=== PATIENT | male | born 1980 | race Caucasian/White ===

== ENCOUNTER → 2017-01-13 17:31 | Emergency (ER) | payer BC ==
[~2017-01-13 17:31] MED LIST: D5W IVPB ONE; SULFAMETHOXAZOLE IVPB ONE; TRIMETH IVPB ONE
[2017-01-13 22:14] VITALS: BP 126/80
--- NOTE | 2017-01-19 03:41 | ED ---
Throat Pain/Nasal Congestion - HPI Summary HPI Summary: Pt here w/ prolonged periorbital cellulitis. Started last week. As flaking over B/L eyelids - pt thought this was allergies/eczema and so took antihistamine. Following couple of days he developed swelling of his Rt eye lids (upper and lower) which worsened. Saw PCP who rx'd clindamycin which he's taken for 4 days now. He later developed a crusted wound at the corner of his Rt eye - returned to PCP as no relief w/ anbx. PCP cx'd wound and started pt on bactrim - he's taken 2 doses of this and no change. Swelling is worse in the morning, slightly better as day goes on/he's upright. Denies laura fever, chills, ocular pain in general or w/ movement and no laura sensation of FB although reports when this first started, had some itching/irritation in Rt eye - this has since dissipated. No other pain/lesions along side of head/face. Denies d/c from eye. Does not wear contact lenses and no known trauma to the area. Eczema is usually worse in winter but allergies can trigger this. Pt is here tonight as he reports his PCP sent him over for IV anbx. - History of Current Complaint Chief Complaint: EDEyeProblem Time Seen by Provider: 01/13/17 18:43 Hx Obtained From: Patient - Allergies/Home Medications Allergies/Adverse Reactions: Allergies Allergy/AdvReac Type Severity Reaction Status Date / Time Amoxicillin Allergy Rash Verified 02/21/16 10:47 peanuts Allergy Anaphylatic Uncoded 01/13/17 17:42 Shock PMH/Surg Hx/FS Hx/Imm Hx Previously Healthy: Yes Endocrine/Hematology History: Reports: Other Endocrine/Hematological Disorders - eczema Denies: Hx Diabetes Cardiovascular History: Denies: Hx Hypertension, Hx Pacemaker/ICD Respiratory History: Reports: Hx Seasonal Allergies Denies: Hx Asthma History: Denies: Hx Renal Disease Sensory History: Denies: Hx Hearing Aid Psychiatric History: Denies: Hx Panic Disorder - Surgical History Surgery Procedure, Year, and Place: RIGHT RING FINGER REATTACH TENDON/ARTERY/ NERVES 2003 Infectious Disease History: No Infectious Disease History: Denies: Traveled Outside the [place] in Last 30 Days - Family History Known Family History: Positive: None - Social History Occupation: Employed Full-time Lives: With Family Alcohol Use: Occasionally Hx Substance Use: No Substance Use Type: Reports: None Hx Tobacco Use: Yes Smoking Status (MU): Current Every Day Smoker Review of Systems Constitutional: Negative Negative: Fever, Chills, Fatigue Eyes: Other - see HPI Negative: Photophobia, Blurred Vision, Diplopia ENT: Negative Negative: Sore Throat, Ear Ache, Nasal Discharge Cardiovascular: Negative Negative: Chest Pain Respiratory: Negative Negative: Shortness Of Breath, Cough Gastrointestinal: Negative Negative: Abdominal Pain, Vomiting, Diarrhea, Nausea Positive: no symptoms reported Musculoskeletal: Negative Negative: Arthralgia, Myalgia Skin: Other - see HPI Neurological: Negative Negative: Headache, Weakness, Paresthesia, Numbness, Syncope, Slurred Speech Psychological: Normal All Other Systems Reviewed And Are Negative: Yes Physical Exam Triage Information Reviewed: Yes Vital Signs On Initial Exam: Initial Vitals Temp Pulse Resp BP Pulse Ox 98.6 F 112 17 145/84 97 01/13/17 17:36 01/13/17 17:36 01/13/17 17:36 01/13/17 17:36 01/13/17 17:36 Vital Signs Reviewed: Yes Appearance: Positive: Well-Appearing - aside from gross edema of tissue surrounding Rt eye - upper and lower lids - scabbing in corner of Rt eye over skin - no d/c, sclera clear and conjunctiva pink w/o edema; B/L upper lids w/ mild skin flaking, No Pain Distress, Well-Nourished Skin: Positive: Warm, Dry Head/Face: Positive: Normal Head/Face Inspection - NTTP Eyes: Positive: EOMI, MIGUELITO, Conjunctiva Clear, Other: - see above for periorbital exam findings. Negative: Conjunctiva Inflammed, Discharge ENT: Positive: Normal ENT inspection, Hearing grossly normal, Pharynx normal, TMs normal. Negative: Nasal congestion, Nasal drainage, Tonsillar swelling, Tonsillar exudate Neck: Positive: Supple, Nontender, No Lymphadenopathy Respiratory/Lung Sounds: Positive: Clear to Auscultation, Breath Sounds Present. Negative: Stridor, Wheezes Cardiovascular: Positive: Normal, RRR Musculoskeletal: Positive: Normal, Strength/ROM Intact Neurological: Positive: Normal, Sensory/Motor Intact, Alert, Oriented to Person Place, Time, CN Intact II-III Psychiatric: Positive: Normal Procedures - Eye Procedure Alcaine Drops Administered: No - tetracaine w/ fluouresceine dye - no abnormal findings (ie.ulcerations, abr Eye Irrigated w/ Saline (ccs): 3 Diagnostics - Vital Signs Vital Signs Temp Pulse Resp BP Pulse Ox 01/13/17 22:09 71 16 126/80 01/13/17 17:41 98.6 F 113 17 145/84 98 01/13/17 17:36 98.6 F 112 17 145/84 97 - Laboratory Lab Statement: Any lab studies that have been ordered have been reviewed, and results considered in the medical decision making process. EENT Course/Dx - Course Course Of Treatment: Pt here w/ prolonged periorbital cellulitis of unkown origin. It is suspected this could have started from allergy/eczema sx. He has not had any improvement after 4 days of clindamycin PO and 1 day of bactrim. Switched pt to cephalosporin and provided first dose via IV. Ordered bactrim IV as well however this took an exceptionally long time to come from pharmacy and pt did not care to wait. Discussed he could complete bactrim PO at home and continue cephalosporin PO as well. Advised close f/u w/ PCP about sx, test results in 24 hours - if same or worse, return to ED. Also encouraged trying ice , ibuprofen and an anti-histamine to assist in control of tissue swelling. Pt and agree w/ plan and will return to ED if danger s/sx present (ie change in vision, fever, HOLLAND, proptosis, pain w/ ocular movement, neck pain, etc). No s/ sx of ocular HZV infection tonight and does not appear to be classic HZV rash so anti-virals withheld. - Diagnoses Provider Diagnoses: Periorbital cellulitis of right eye Discharge - Discharge Plan Condition: Stable Disposition: HOME Prescriptions: Cefdinir [Cefdinir 300 MG CAP] 300 mg PO BID #20 cap Patient Education Materials: Periorbital Cellulitis in Adults (ED) Referrals: Nataliya Foy MD [Primary Care Provider] - Additional Instructions: You appear to have periorbital cellulitis. This is an infection of the tissue around the eye. Tonight, you received a 2 gram dose of rocephin IV and will be switched from clindamycin to cefdinir. Rocephin and cefdinir are in the same class of antibiotics and will cover staph organisms. 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 Stop taking the clindamycin. Continue and complete the Bactrim (aka Trimethoprim and Sulfamethoxalone). You may also try benadryl 50mg before bed tonight to reduce swelling around eye. You may continue a daily anti-histamine (ie. claritin, zyrtec, etc) and take benadryl before bed to reduce swelling from possible allergic swelling. These medications should show improvement of symptoms in 24 hours (by 9:00p tomorrow). If worse - eye redness, eye pain with movements, light sensitivity, eye bulging forward, headache, fever, jaw/neck pain, return to ED. Otherwise, follow-up with PCP for results of test taken earlier this week.
== END | disposition home or self-care (01) ==
LOC: ED 17:31
DX: L03.213 Periorbital cellulitis (principal)
CPT/HCPCS: 96365; 99283; J0696

== ENCOUNTER 2017-10-18 20:21 | Emergency (ER) | payer BC ==
[2017-10-18 20:42] VITALS: BP 120/74
[2017-10-18] MEDS ORDERED: Tetan/Diph/Pertus SYR(Tdap)* 0.5 ML SYR(BOOSTRIX) use SYR IM ONE (21:18)
--- NOTE | 2017-10-18 21:27 | UC ---
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 Wound is close w/o swelling. Pain is 4/10 intermittent and radiating to the forearm. Pt thinks he irritated a nerve. Pt denies numbness or tingling sensation, fever, SON, chest pain, abdominal pain,N/ V/D. - History of Current Complaint Chief Complaint: UCUpperExtremity Stated Complaint: NAIL PUNCTURE HAND Time Seen by Provider: 10/18/17 21:16 Hx Obtained From: Patient Onset/Duration: Sudden Onset, Lasting Hours - 2 hrs ago, Still Present Severity Initially: Mild Severity Currently: Mild Pain Intensity: 4 Pain Scale Used: 0-10 Numeric Location Of Pain: Is Discrete @ - dorsal side of left hand, Radiates To - left forearm Character: Unable to Describe - shooting pain Aggravating Factor(s): Movement Alleviating Factor(s): OTC Meds, Rest Associated Signs And Symptoms: Positive: Redness - point. Negative: Swelling, Bruising, Fever, Numbness/Tingling Related History: Dominant Hand Right - Risk Factors Non-Orthopedic Risk Factor: Negative DVT Risk Factors: Negative - Allergies/Home Medications Allergies/Adverse Reactions: Allergies Allergy/AdvReac Type Severity Reaction Status Date / Time amoxicillin Allergy Rash Verified 10/18/17 20:36 peanuts Allergy Anaphylatic Uncoded 10/18/17 20:36 Shock Home Medications: Home Medications Albuterol HFA INHALER* [Ventolin HFA Inhaler*] 1 puff INH Q4H PRN 10/18/17 [ History Confirmed 10/18/17] PMH/Surg Hx/FS Hx/Imm Hx Previously Healthy: Yes Endocrine History: Dyslipidemia - diet control - Surgical History Surgical History: Yes Surgery Procedure, Year, and Place: RIGHT RING FINGER REATTACH TENDON/ARTERY/ NERVES 2003 - Family History Known Family History: Positive: Cardiac Disease, Hypertension - Social History Occupation: Employed Full-time Lives: With Family Alcohol Use: Occasionally Substance Use Type: None Smoking Status (MU): Current Every Day Smoker Amount Used/How Often: 3-4 cig/ day Review of Systems Constitutional: Negative Skin: Other - dorsal side of left hand w/ a discrete puncture wound w/ nail Eyes: Negative ENT: Negative Respiratory: Negative Cardiovascular: Negative Gastrointestinal: Negative Genitourinary: Negative Motor: Negative Neurovascular: Negative Musculoskeletal: Other: - left hand pain s/p puncture wound Neurological: Negative Psychological: Negative Is Patient Immunocompromised?: No All Other Systems Reviewed And Are Negative: Yes Physical Exam - Summary Physical Exam Summary: Vital Signs Reviewed: Yes General: Well-Appearing, No Pain Distress, Well-Nourished male w/o any apparent pain distress Eyes: Positive: Conjunctiva Clear - PERRLA, EOMI ENT: Positive: Normal ENT inspection, Hearing grossly normal, Pharynx normal, TMs normal, Uvula midline Neck: Positive: Supple, Nontender, No Lymphadenopathy Respiratory: Positive: Chest non-tender, Lungs clear, Normal breath sounds, No respiratory distress Cardiovascular: Positive: RRR, No Murmur, Pulses Normal, Brisk Capillary Refill Abdomen Description: Positive: Nontender, No Organomegaly, Soft. Negative: CVA Tenderness (R), CVA Tenderness (L) Bowel Sounds: Positive: Present Neurological Exam: Normal Musculoskeletal: Positive: Rt hand is without obvious asymmetry or deformity when compared to the L hand. Mid dorsal side of left hand w/ a discrete puncture wound w/ point erythema, no swelling observed, point tenderness on palpation. No bony crepitus. FROM of left hand and all phalanx. Motor/sensory function of ulnar, radial, median nerves intact. Ulnar and radial pulses intact. Capillary refill intact. 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 Wound is close w/o swelling. Pain is 4/10 intermittent and radiating to the forearm. Pt thinks he irritated a nerve. Pt denies numbness or tingling sensation, fever, SON, chest pain, abdominal pain,N/V/D.Hx obtained. Pt w/ discrete puncture wound on the mid dorsal side of left hand, FROM of hand, mild tenderness on examination. Pt given Tetanus IM inj by the Nurse. Pt tolerated well IM inj. wound clened w/ Iodine swabs and applied Bacitracin topical and sterile dressing applied. Pt Rx Keflex PO and Naproxen PO. Pt advised if he develops signs of infection despite ABX to return to the urgetn care or f/u w/ PCP for further Treatment. Pt undestood and agreed w/ plan of care. - Differential Dx/Diagnosis Differential Diagnosis/HQI/PQRI: Contusion, Laceration, Other - puncture wound Provider Diagnoses: 1- left hand puncture wound s/p nail injury Discharge - Discharge Plan Condition: Stable Disposition: HOME Prescriptions: Cephalexin CAP* [Keflex CAP*] 500 mg PO QID #27 cap Naproxen Sodium [Naproxen Sodium 500 MG TAB] 500 mg PO Q8HR PRN #20 tab PRN Reason: Pain Patient Education Materials: Puncture Wound (ED) Referrals: Tc Hernandez MD [Primary Care Provider] - 3 Days Additional Instructions: 1-Please take full course of Antibiotic. 2- Take Naproxen PO as directed after mealas to alleviate pain. 3-Avoid flexion of your hand until symptoms resolved. keep wound clean and dry. 4-Please F/u with your PCP in 3 days for further evaluation and treatment.
[2017-10-18] MEDS ORDERED: Naproxen TAB* 250 MG PO ONE (21:33)
[2017-10-18] MEDS ORDERED: Cephalexin CAP* 500 MG PO ONE (21:33)
== END 2017-10-18 21:42 | disposition home or self-care (01) ==
LOC: UCEAST 20:21
DX: S61.432A Puncture wound without foreign body of left hand, initial encounter (principal); W45.0XXA Nail entering through skin, initial encounter; Y93.89 Activity, other specified; Y92.9 Unspecified place or not applicable; Z23 Encounter for immunization; E78.5 Hyperlipidemia, unspecified; Z88.1 Allergy status to other antibiotic agents; F17.210 Nicotine dependence, cigarettes, uncomplicated
CPT/HCPCS: 90471; 90715; 99212; A9270-GY; G0463

== ENCOUNTER 2018-06-22 14:54 | Emergency (ER) | payer BC ==
--- NOTE | 2018-06-22 18:06 | ED ---
Head Injury - HPI Summary HPI Summary: Pt. is a 38 y.o male who presents to the ER for evaluation after a head injury that occurred 06/11/18. Pt. states he was playing hockey wearing a helmet when he fell back and hit the back of his head in the ice. Pt. denies LOC. He states he had a h/a for a few days that then improved. He states over the weekend, a few days ago, he had a few hour episode where he did not recall walking to his car and sending text messages. He c/o mild headache. Pt. concerned today with memory loss. He has no past medical hx. He does note lack of sleep lately as he has a new baby at home. Sxs are moderate in severity. No current modifying factors. - History Of Current Complaint Chief Complaint: EDHeadInjury Stated Complaint: CONCUSSION Time Seen by Provider: 06/22/18 15:38 Hx Obtained From: Patient Pain Intensity: 2 - Allergies/Home Medications Allergies/Adverse Reactions: Allergies Allergy/AdvReac Type Severity Reaction Status Date / Time amoxicillin Allergy Rash Verified 06/22/18 15:27 peanuts Allergy Anaphylatic Uncoded 10/18/17 20:36 Shock PMH/Surg Hx/FS Hx/Imm Hx Previously Healthy: Yes Endocrine/Hematology History: Reports: Other Endocrine/Hematological Disorders - eczema Denies: Hx Diabetes Cardiovascular History: Denies: Hx Hypertension, Hx Pacemaker/ICD Respiratory History: Reports: Hx Asthma, Hx Seasonal Allergies History: Denies: Hx Renal Disease Sensory History: Denies: Hx Hearing Aid Psychiatric History: Denies: Hx Panic Disorder - Surgical History Surgery Procedure, Year, and Place: RIGHT RING FINGER REATTACH TENDON/ARTERY/ NERVES 2003 Infectious Disease History: No Infectious Disease History: Denies: Traveled Outside the [place] in Last 30 Days - Family History Known Family History: Positive: None, Cardiac Disease, Hypertension - Social History Occupation: Employed Full-time Lives: With Family Alcohol Use: Occasionally Hx Substance Use: No Substance Use Type: Reports: None Hx Tobacco Use: Yes Smoking Status (MU): Current Every Day Smoker Amount Used/How Often: 3-4 cig/ day Review of Systems Constitutional: Negative Eyes: Negative ENT: Negative Cardiovascular: Negative Respiratory: Negative Gastrointestinal: Negative Musculoskeletal: Negative Skin: Negative Neurological: Other - memory loss Positive: Headache All Other Systems Reviewed And Are Negative: Yes Physical Exam Triage Information Reviewed: Yes Vital Signs On Initial Exam: Initial Vitals Temp Pulse Resp BP Pulse Ox 98.2 F 79 16 143/80 98 06/22/18 15:20 06/22/18 15:20 06/22/18 15:20 06/22/18 15:20 06/22/18 15:20 Vital Signs Reviewed: Yes Appearance: Positive: Well-Appearing - Pt. sitting on bed in NAD. Skin: Positive: Warm, Dry Head/Face: Positive: Normal Head/Face Inspection Eyes: Positive: Normal, EOMI, MIGUELITO ENT: Positive: Normal ENT inspection Respiratory/Lung Sounds: Positive: Clear to Auscultation Cardiovascular: Positive: Normal, RRR Musculoskeletal: Positive: Normal, Strength/ROM Intact Neurological: Positive: Normal, Alert, Oriented to Person Place, Time, CN Intact II-III, Finger to Nose - normal, Facial Symmetry, Speech Normal Psychiatric: Positive: Affect/Mood Appropriate - Stella Coma Scale Best Eye Response: 4 - Spontaneous Best Motor Response: 6 - Obeys Commands Best Verbal Response: 5 - Oriented Coma Scale Total: 15 Diagnostics - Vital Signs Vital Signs Temp Pulse Resp BP Pulse Ox 06/22/18 15:20 98.2 F 79 16 143/80 98 - Laboratory Result Diagrams: 06/22/18 17:59 06/22/18 19:51 Lab Statement: Any lab studies that have been ordered have been reviewed, and results considered in the medical decision making process. Head Injury Course/Dx Course Of Treatment: Pt. presenting for memory loss and ongoing h/a after head injury two weeks ago. Pt. has no neuro deficits on exam. Given memory loss and pt.'s concerns will obtain head ct to r/o bleed, fx, mass. Reading per radiology: IMPRESSION: There is a nonspecific 5 mm hypoattenuating focus at the cazares-white matter. junction of the left frontal lobe. This is a nonspecific finding that can be further. characterized with MRI of the brain if clinically indicated. I spoke with oncall neurology, Dr. Bunn, who recommends MRI brain w /wo for further evaluation. Results and plan were discussed with pt. Pending MRI between 7-8pm. Pt. will be signed out to Britany Bush for MRI results and appropriate disposition. - Diagnoses Differential Diagnosis/HQI/PQRI: Cerebral Contusion, Concussion Without LOC, Contusion, Hematoma, Intracranial Bleed Provider Diagnoses: Head injury Discharge - Sign-Out/Discharge Documenting (check all that apply): Patient Departure Signing out patient TO: Ayleen Bush - Discharge Plan Condition: Good Disposition: HOME Patient Education Materials: Head Injury (ED) Referrals: Glenroy Bunn MD [Medical Doctor] - Tc Hernandez MD [Primary Care Provider] - Additional Instructions: follow up with neurology Modify activities as tolerated Follow up with primary within 5 days Return to ED if develop any new or worsening symptoms - Billing Disposition and Condition Condition: GOOD Disposition: Home
[2018-06-22 18:15] LABS: ABS Basophils 0.1 10^3/ul (0-0.2); ABS Eosinophils 0.4 10^3/ul (0-0.6); ABS Lymphocytes 1.9 10^3/ul (1.0-4.8); ABS Monocytes 0.5 10^3/ul (0-0.8); ABS Neutrophils 5.5 10^3/ul (1.5-7.7); ABS Nucleated RBC 0 10^3/ul; Hematocrit 47 % (42-52); Hemoglobin 15.8 g/dl (14.0-18.0); Lymphocyte % 22.8 % (25-47); Mean Corpuscular HGB Conc 34 g/dl (31-36); Mean Corpuscular Hemoglobin 31 pg (27-31); Mean Corpuscular Volume 90 fL (80-94); Mean Platelet Volume 8.1 fL (7.4-10.4); Nucleated Red Blood Cells % 0.1; Platelet Count 181 10^3/ul (150-450); Red Blood Count 5.16 10^6/ul (4.00-5.40); Red Cell Distribution Width 13 % (10.5-15); White Blood Count 8.4 10^3/ul (3.5-10.8)
[2018-06-22 18:34] LABS: EGFR Non-African American 95.5 (>60)
--- NOTE | 2018-06-22 18:43 | ED ---
Progress - Progress Note Progress Note: patient signed out by Rocael ISAACS pending MRI MRI: no acute findings Course/Dx - Course Course Of Treatment: Reading per radiology: IMPRESSION: There is a nonspecific 5 mm hypoattenuating focus at the cazares-white matter. junction of the left frontal lobe. This is a nonspecific finding that can be further. characterized with MRI of the brain if clinically indicated. I spoke with oncall neurology, Dr. Bunn, who recommends MRI brain w/wo for further evaluation. Results and plan were discussed with pt. Pending MRI between 7-8pm. Pt. will be signed out to Britany Bush for MRI results and appropriate disposition.MRI: IMPRESSION: No acute findings on MR Brain. discussed results with patient. told to follow up with neurology or primary. patient understand and agrees with plan. - Diagnoses Provider Diagnoses: Head injury Discharge - Sign-Out/Discharge Documenting (check all that apply): Patient Departure - Discharge Plan Condition: Good Disposition: HOME Patient Education Materials: Head Injury (ED) Referrals: Glenroy Bunn MD [Medical Doctor] - Tc Hernandez MD [Primary Care Provider] - Additional Instructions: follow up with neurology Modify activities as tolerated Follow up with primary within 5 days Return to ED if develop any new or worsening symptoms - Billing Disposition and Condition Condition: GOOD Disposition: Home
[2018-06-22] MEDS ORDERED: Gadoteridol* (CONTRAST) 279.3 MG/ML 10 ML IV ONE (19:18)
[2018-06-22 21:13] VITALS: BP 135/90
== END 2018-06-22 21:12 | disposition home or self-care (01) ==
LOC: ED 14:54
DX: S09.90XA Unspecified injury of head, initial encounter (principal); R51 Headache; W19.XXXA Unspecified fall, initial encounter; Y93.22 Activity, ice hockey; Y92.9 Unspecified place or not applicable; Z88.0 Allergy status to penicillin; F17.210 Nicotine dependence, cigarettes, uncomplicated
CPT/HCPCS: 36415; 70030; 70450; 70553; 80053; 85025; 99282; A9579